=== PATIENT | male | born 1975 | race Caucasian/White ===

== ENCOUNTER 2024-09-25 20:51 | Emergency (ER) | payer MEDICAID ==
[~2024-09-25] VITALS: Ht 167.6 cm; Wt 99.8 kg
[2024-09-25 21:01] VITALS: TEMP 36.8; O2SAT 98
[2024-09-25 21:28] LABS: BASOPHILS % 1.8 % (0.0-2.0); DIFFERENTIAL COMMENT 0; EOSINOPHILS % 0.6 % (0.0-5.0); HEMATOCRIT. 34.6 % (42.0-52.0); HEMOGLOBIN. 10.4 g/dL (14.0-18.0); LYMPHOCYTES % 21.5 % (20.0-50.0); MEAN CORPUSCULAR HEMOGLOBIN 21.8 pg (28.0-32.0); MEAN CORPUSCULAR HGB CONC 29.9 g/dL (31.0-37.0); MEAN CORPUSCULAR VOLUME 72.9 fL (80.0-94.0); MEAN PLATELET VOLUME 7.6 fl (7.4-10.4); MONOCYTES % 5.4 % (2.0-8.0); NEUTROPHILS % 70.7 % (40.0-76.0); PLATELET 207 x1000/uL (130-400); RED BLOOD CELL COUNT 4.75 mill/uL (4.7-6.1); RED CELL DISTRIBUTION WIDTH 20.5 % (11.6-14.6)
[2024-09-25 21:34] LABS: CHLORIDE 106 mEq/L (98-107); POTASSIUM 3.8 mEq/L (3.5-5.1); SODIUM 143 mEq/L (136-145)
[2024-09-25 21:35] LABS: CARBON DIOXIDE 22 mEq/L (21-32)
[2024-09-25 21:36] LABS: CALCIUM 8.3 mg/dL (8.7-10.4)
[2024-09-25 21:40] LABS: CREATININE 0.8 mg/dL (0.6-1.3); GLUCOSE 198 mg/dL (70-105); UREA NITROGEN BLOOD 7 mg/dL (9-23)
[2024-09-25 21:41] LABS: ETHANOL BLOOD 132 mg/dL (<10)
[2024-09-25 21:42] LABS: ACETAMINOPHEN < 2 ug/mL (10-30)
[2024-09-25 21:52] LABS: CLARITY URINE CLEAR (CLEAR); COLOR URINE YELLOW (YELLOW); GLUCOSE URINE NEGATIVE (NEGATIVE); KETONES URINE NEGATIVE (NEGATIVE); LEUKOCYTE ESTERASE URINE NEGATIVE (NEGATIVE); NITRITE URINE NEGATIVE (NEGATIVE); OCCULT BLOOD URINE NEGATIVE (NEGATIVE); PH URINE 6.5 (4.5-8.0); PROTEIN URINE 2+ (NEGATIVE); SPECIFIC GRAVITY URINE 1.013 (1.005-1.030); UROBILINOGEN URINE 0.2 E.U./dL (0.2-1.0)
[2024-09-25 22:10] LABS: *AMPHETAMINES SCREEN URINE PRESUMPTIVE POSITIVE (NEGATIVE); *BARBITURATES SCREEN URINE NEGATIVE (NEGATIVE); *BENZODIAZEPINES SCREEN URINE NEGATIVE (NEGATIVE); *COCAINE SCREEN URINE NEGATIVE (NEGATIVE); CANNABINOID URINE SCREEN NEGATIVE (NEGATIVE); ECSTASY MDMA SCREEN URINE CONF.TEST INDICATED (NEGATIVE); METHADONE URINE SCREEN NEGATIVE (NEGATIVE); OPIATES URINE SCREEN NEGATIVE (NEGATIVE); PHENCYCLIDINE URINE SCREEN NEGATIVE (NEGATIVE)
[2024-09-25 22:16] LABS: BACTERIA URINE NONE SEEN; SQUAMOUS EPITHELIAL CELL URINE NONE SEEN /lpf (RARE/1+); WBC URINE 0-2 /hpf (0-2)
[2024-09-25] MEDS ORDERED: NALO4SPR BOTHNSTRLS (23:40)
[2024-09-26 01:19] VITALS: BP 125/75; PULSE 96; RESP 11; O2SAT 98
== END 2024-09-26 01:25 | disposition home or self-care (01) ==
LOC: ER 20:51
DX: T65.91XA Toxic effect of unspecified substance, accidental (unintentional), initial encounter (principal); Z79.899 Other long term (current) drug therapy; Y92.89 Other specified places as the place of occurrence of the external cause
CPT/HCPCS: 36415; 71045; 80048; 80305; 80307; 80320; 80329; 81003; 85025; 93005; 99285; G0480